=== PATIENT | female | born 1955 | race Asian ===

== ENCOUNTER → 2021-02-11 | Outpatient (CLI) | payer MEDICARE, OTHER ==
--- NOTE | 2021-02-11 17:35 | RAD ---
EXAM: MG DIAGNOSTICUNILAT MAMMO, US BREAST BIOPSY 1ST LESION 02/11/2021 1:30 PM INDICATION: Left breast mass COMPARISON: Left breast mammogram and ultrasound 02/05/2020 TECHNIQUE/FINDINGS: The purpose of the procedure, risks and benefits were explained to the patient. Informed consent was obtained. A timeout was performed. The patient was placed supine on the ultrasound table. The hypoechoic mass at 11:00, 5 cm from the ni pple in the left breast was identified and overlying skin marked, prepped, draped in standard sterile fashion. Skin was anesthetized with 1 percent lidocaine. Next, 3 core biopsy samples were obtained w ith a coaxial 14-gauge biopsy device. Samples were placed in formalin and sent to the laboratory for analysis. A Bard coil biopsy marker was then placed at the biopsy site under ultrasound. [place] were removed, pressure held for hemostasis, and skin cleansed and covered with a dressing. The patient to lerated the procedure well and left in stable condition. Post clip mammogram demonstrates appropriate position of clip in the mass at 11:00, 5 cm posterior to the nipple. IMPRESSION:Technically successful ultrasound-guided biopsy of left breast mass and clip placement. Electronically signed by: Natasha Malhotra MD (02/11/2021 5:33 PM) [id number]
--- NOTE | 2021-02-12 17:07 | PATHOLOGY ---
[facility] Accession Number: [id number] . 01 Material submitted: . breast - LEFT BREAST MASS 11 O'CLOCK 5CMFN 8MM. Modifiers: left, 11:00, 5CMFN 8MM . 02 Diagnosis: Breast tissue, left breast mass 11:00 5 cm from nipple needle biopsies: - INVASIVE DUCTAL CARCINOMA, HISTOLOGIC GRADE 3. SEE COMMENT. LBQ 02/12/2021 1339 Local . 02 Comment: Sections of the left breast mass 11:00 needle biopsy reveal an invasive mammary carcinoma. The tumor is associated with a reactive and inflamed desmoplastic stroma. The tumor shows no evidence of tubule formation. Tumor cells show marked nuclear pleomorphism and have enlarged rounded to ovoid hyperchromatic nuclei containing prominent nucleoli. There are mitotic figures present. The invasive carcinoma measures up to 5 mm in greatest dimension on the glass slide. There are no tumor associated calcifications. There is no lymphovascular tumor invasion. One of the sections appears to show solid type high-grade ductal carcinoma in situ within surrounding breast tissue. Breast prognostic studies will be obtained on A1, the results of which will be reported separately. The case is also examined by Dr. Jeffery, who concurs with the diagnosis. (JPM/db; 02/12/2021) . 02 Electronically signed: . Abraham Rodriguez MD, Pathologist NPI- [id number] . 01 Gross description: . The specimen is received in formalin, labeled "Sulaiman Cohn, left breast 11:00 5 cm from nipple". Received are three needle cores of fibrofatty tissue measuring 1.4 x 0.6 x 0.2 cm in aggregate dimensions. The specimen is submitted entirely in cassettes A1 through A3. The cold ischemic time is 2 minutes. The total formalin fixation time is 8 hours and 26 minutes. (CAA; 02/11/2021) QAC/QAC 02/11/2021 1557 Local . 02 Pathologist provided ICD-10: C50.912 . 02 CPT . 466254 Specimen Comment: A courtesy copy of this report has been sent to [phone], [phone] Specimen Comment: [phone] Specimen Comment: Report sent to / DR NOBLE Performed at: 01 [facility] [address] [place] [address] [id number] MD Axel Jeffery MD Phone: [phone] Performed at: 02 [facility] [address] [place] [address] [id number] MD Abraham Rodriguez MD Phone: [phone]
== END | disposition home or self-care (01) ==
LOC: US 12:27
PROVIDERS: ATTEND Specialist
DX: N63.22 Unspecified lump in the left breast, upper inner quadrant (principal); Z88.8 Allergy status to other drugs, medicaments and biological substances
CPT/HCPCS: 19083; 77065; A4648; 88305; 88361

== ENCOUNTER 2021-04-07 07:03 | Day surgery (SDC) | payer MEDICARE, OTHER ==
[~2021-04-07] VITALS: Ht 154.9 cm; Wt 47.7 kg
[~2021-04-07 07:03] MED LIST: ALEN70TA71 PO; ASCO100019 PO; CALC500T30 PO; CHOL20009 PO; HYDROmorphone 2 MG/ML VIAL IVP PRN; LEVO75TA5 PO; LIDOCAINE 1% Multi-Dose 20 ML VIAL. INJ ONE; MORPHINE SULFATE 2 MG/ML INJ. IVP PRN; PROCHLORPERAZINE 10 MG/2 ML VIAL. IVP PRN; ceFAZolin SODIUM IV Push 1 GM VIAL. IVP PRN; fentaNYL PF VIAL 100 MCG/2 ML VIAL IVP PRN
[2021-04-07] MEDS: IV RINGERS,LACTATED 1000ML 1,000 ML IV SCH ×2 (07:22→12:37)
[2021-04-07] MEDS ORDERED: LIDOCAINE 1% Multi-Dose 20 ML VIAL. ONE (09:17)
[2021-04-07] MEDS ORDERED: BUPIVACAINE-EPI 0.5% 30 ML VIAL KIT. ONE ×2 (09:58→10:07)
[2021-04-07] MEDS ORDERED: LIDOCAINE 1%/EPI 1:100,000 20 ML VIAL. ONE (09:58)
[2021-04-07] MEDS ORDERED: ISOSULFAN BLUE 1% 50 MG/5 ML VIAL. SQ ONE (09:58)
[2021-04-07] MEDS ORDERED: PROPOFOL 10 MG/ML (20ML) VIAL. IV ONE (10:01)
[2021-04-07] MEDS ORDERED: fentaNYL PF VIAL 100 MCG/2 ML VIAL ONE ×2 (10:02→12:28)
[2021-04-07] MEDS ORDERED: ONDANSETRON PF 4 MG/2 ML VIAL. ONE (10:03)
[2021-04-07] MEDS ORDERED: KETOROLAC 30 MG/ML VIAL. ONE (10:03)
[2021-04-07] MEDS ORDERED: LIDOCAINE 2% PF 5 ML VIAL. ONE (10:03)
[2021-04-07] MEDS ORDERED: DEXAMETHASONE SOD PHOS 20 MG/5 ML VIAL. ONE (10:03)
[2021-04-07] MEDS ORDERED: BUPIVACAINE MPF 0.5% 30 ML VIAL. ONE (10:04)
--- NOTE | 2021-04-07 10:23 | RAD ---
EXAM: MG DIAGNOSTICUNILAT MAMMO, US NDL LOC WIRE BREAST 04/07/2021 9:15 AM INDICATION: Left breast cancer, wire localization for surgery. COMPARISON: Left breast ultrasound and mammogram 02/11/2021 TECHNIQUE/FINDINGS: The purpose of the procedure, risks and benefits were explained to the patient. Informed consent was obtained. A timeout was performed. The patient was placed supine on the ultrasound table. The mass at 11:00 5 cm from the nipple in the leftbreast was identified and overlying skin marked, prepped, draped in standard sterile fashion. Ski n was anesthetized with 1 percent lidocaine. Next, a 5 cm wire localization needle was advanced into the mass and the wire deployed with the tip 1 cm beyond the edge of the mass. The wire was kept in pl shauna on the overlying needle was removed. The external portion of the wire was secured to the skin wit h a bandage. Post clip mammogram demonstrates appropriate position of clip in the mass at 11:00 5 cm from the nipp le, immediately adjacent to the clip. The tip of the wire is about 1-1.4 cm beyond the mass. IMPRESSION:Technically successful ultrasound-guided wire localization of left breast mass and post wi re-localization mammogram. Electronically signed by: Natasha Malhotra MD (04/07/2021 10:20 AM) [id number]
[2021-04-07] MEDS ORDERED: SEVOFLURANE 31 TO 60 MINUTES. IH ONE (10:35)
--- NOTE | 2021-04-07 12:06 | RAD ---
Exam performed: Porter lymph node injection . History: Left breast cancer. Date of Service: 04/07/2021. Discussion: Relative benefits risks and alternatives to the procedure were discussed and verbal and written infor med consent was obtained. With sterile technique, 1 mCi Lymphoseek radiotracer was injected intradermally in 4 aliquots around the periareolar left breast at 12:00, 3:00, 6:00, and 9:00. The patient tolerated the procedure well and was transferred to the preprocedure area in stable condition. Impression: Technically successful sentinel node injection of the left breast. Electronically signed by: Natasha Malhotra MD (04/07/2021 12:04 PM) [id number]
[2021-04-07] MEDS ORDERED: NALOXONE 0.4 MG/ML VIAL. IV PRN (12:30)
[2021-04-07] MEDS ORDERED: HYDROcodone/APAP 5/325MG 1 TAB TABLET PO PRN ×2 (12:30)
[2021-04-07] MEDS ORDERED: HYDROmorphone 2 MG/ML VIAL IV PRN (12:30)
[2021-04-07] MEDS ORDERED: ONDANSETRON PF 4 MG/2 ML VIAL. IVP PRN (12:30)
[2021-04-07] MEDS ORDERED: IV 1/2 NORMAL SALINE 1,000 ML IV SCH (12:30)
[2021-04-07] MEDS ORDERED: 0.9 % SODIUM CHLORIDE 10 ML DISP.SYRIN. IV PRN (12:30)
[2021-04-07] MEDS ORDERED: IV NORMAL SALINE 1000ML BAG 1,000 ML IV SCH (12:30)
--- NOTE | 2021-04-07 12:30 | PDOC4 ---
Operative Note Operative Note Operative Note: Preoperative Diagnosis: Left breast cancer Postoperative Diagnosis: Same Procedure: Left lumpectomy with needle localization, left sentinel lymph node biopsy Surgeon: Jeff Geophysics Professor: Jose Antonio Singh MS Anesthesia: General EBL: 10 mL Specimen: Left axillary sentinel lymph node biopsy, left lumpectomy short stitch superficial long stitch lateral, additional medial and inferior margins to pathology Drains: None Complications: None Indication: The patient is a 66-year-old female was recently diagnosed with early left breast cancer. She is interested in breast conservation. The plan is for lumpectomy with sentinel lymph node biopsy. The details and risks of surgery were discussed. The risks include bleeding, infection, scar tissue, wound healing problems, anesthetic risk, potential need for additional surgery procedure. She understands and would like to proceed. Description: The patient was taken initially to radiology where she underwent wire localization and injection of technetium sulfur colloid. She was then brought to the operating room and placed supine on the operating table. General anesthesia was performed. The left breast and axilla were prepped with ChloraPrep and draped in a standard surgical manner. Five mL of Lymphazurin were injected deep to the nipple areolar complex. Several minutes were allowed to elapse. An incision was made in the left axilla with a scalpel. Cautery di ssection was carried out into the axillary tissues. There was one area of focal increased nuclear uptake. This corresponded to a lymph node that did stain blue and showed a blue channel leading to it. This was harvested and sent to pathology as sentinel lymph node #1. Further inspection showed no remaining areas of nuclear uptake or blue staining nodes. There was no palpable a denopathy as well. Frozen section of the lymph node was negative for metastasis. We then proceeded with the lumpectomy. An incision was made at the expected location of the tumor at the 11 o'clock position of the left breast. Cautery dissection was carried down to the breast parenchyma. The wire was identified and followed to its distal tip. With cautery a generous lumpectomy specimen was mobilized from the surrounding tissues in the region of the tumor. The dissection was carried all the way down to the pectoralis muscle. In a medial to lateral fashion the lumpectomy specimen was excised off the chest wall and sent to radiology. Specimen radiograph confirmed the presence of the tumor and clip. Additional shave margins were taken in the medial and inferior margins which were sent to pathology. Hemostasis was good. The subcutaneous tissue of both incisions was closed with 3-0 Vicryl. Skin was approximated for Monocryl and sterile dressings were applied. The patient tolerated procedure well and was sent to the recovery room in stable condition. At the end the case all counts were correct AUDELIA MENDIOLA MD Apr 07, 2021 12:30
[2021-04-07] MEDS ORDERED: HYDROcodone/APAP 5/325MG 1 TAB TABLET PO ONE (13:00)
[2021-04-07 13:02] VITALS: BP 144/63
[2021-04-07] MEDS ORDERED: HYDR-2761 PO (13:06)
--- NOTE | 2021-04-07 13:08 | DISCH ---
DISCHARGE INSTRUCTIONS Condition on Discharge Condition on Discharge: Stable Activity After Discharge Activity Instructions for Disc: Activity as tolerated Diet after Discharge Diet after Discharge: Regular Wound Incision Care Wound/Incision Care: Other, see below (keep dressings clean and dry, DR will remove next week ) Follow-Up Follow up with: Dr Mendiola in office in 1 week, call for appointment, AUDELIA MENDIOLA MD Apr 07, 2021 13:08
--- NOTE | 2021-04-07 14:43 | RAD ---
EXAM: MG DIGITAL BILAT DIAGNOSTIC MAMMO WITH JOSE DAVID 04/07/2021 11:40 AM CLINICAL INDICATION: Lumpectomy specimen COMPARISON: Left breast mammogram 04/07/2021 TECHNIQUE: Mammographic images of the surgical specimen was obtained. FINDINGS: The entire mass, biopsy clip, and localization wire are seen in the specimen. IMPRESSION: Surgical specimen contains the entire mass, surgical clip, and wire. Electronically signed by: Natasha Malhotra MD (04/07/2021 2:41 PM) [id number]
== END 2021-04-07 13:49 | disposition home or self-care (01) ==
LOC: SURG 07:03
PROVIDERS: ATTEND Surgery
DX: C50.912 Malignant neoplasm of unspecified site of left female breast (principal); R92.8 Other abnormal and inconclusive findings on diagnostic imaging of breast; E03.9 Hypothyroidism, unspecified; Z79.899 Other long term (current) drug therapy; Z90.710 Acquired absence of both cervix and uterus; Z98.890 Other specified postprocedural states; Z88.8 Allergy status to other drugs, medicaments and biological substances
CPT/HCPCS: 19285; 19302; 38792; 76098; 77065; 88307; 88331; 88342; 96374; A4209; A4930; A6254; A6258; A9520; C1819; J0690; J1100; J1885; J2405; J2704; J3010; J3490; Q9968

== ENCOUNTER 2021-05-05 07:37 | Outpatient (CLI) | payer MEDICARE, OTHER ==
[~2021-05-05] VITALS: Ht 154.9 cm; Wt 47.7 kg
[2021-05-05] VITALS (7 sets, daily range): BP systolic 112–154; BP diastolic 50–68
[~2021-05-05 07:37] MED LIST changes: +HYDR-2761 PO; -HYDROmorphone 2 MG/ML VIAL IVP PRN; -LIDOCAINE 1% Multi-Dose 20 ML VIAL. INJ ONE; -MORPHINE SULFATE 2 MG/ML INJ. IVP PRN; -PROCHLORPERAZINE 10 MG/2 ML VIAL. IVP PRN; -ceFAZolin SODIUM IV Push 1 GM VIAL. IVP PRN; -fentaNYL PF VIAL 100 MCG/2 ML VIAL IVP PRN
[2021-05-05] MEDS ORDERED: ceFAZolin SODIUM IV Push 1 GM VIAL. IVP ONE ×2 (08:00→09:54)
[2021-05-05 08:20] LABS: BASO % 1 % (0-3); EOS # 0.1 x10^3/uL (0.0-0.7); EOS % 2 % (0-3); HEMATOCRIT 42.5 % (36.0-47.0); LYMPH # 1.9 x10^3/uL (1.0-4.8); LYMPH % 30 % (24-48); MEAN CORPUSCULAR HEMOGLOBIN 32 pg (25-35); MEAN CORPUSCULAR HGB CONC 33 g/dL (31-37); MEAN CORPUSCULAR VOLUME 98 fL (79-100); MONO # 0.3 x10^3/uL (0.0-1.1); MONO % 4 % (0-9); NEUT % 64 % (31-73); PLATELET COUNT 246 x10^3/uL (140-400); RED BLOOD COUNT 4.36 x10^6/uL (3.50-5.40); RED CELL DISTRIBUTION WIDTH 13.1 % (11.5-14.5); WHITE BLOOD COUNT 6.3 x10^3/uL (4.0-11.0)
[2021-05-05 08:26] LABS: CALCIUM 8.7 mg/dL (8.5-10.1); CREATININE 0.6 mg/dL (0.6-1.0); POTASSIUM 4.1 mmol/L (3.5-5.1)
[2021-05-05] MEDS ORDERED: LIDOCAINE 1%/EPI 1:100,000 20 ML VIAL. ONE (08:32)
[2021-05-05] MEDS ORDERED: fentaNYL PF VIAL 100 MCG/2 ML VIAL ONE (09:54)
[2021-05-05] MEDS ORDERED: MIDAZOLAM HCL/PF 2 MG/2 ML VIAL. ONE (09:54)
[2021-05-05] MEDS ORDERED: HEPARIN PF 500 UNIT/5 ML DISP.SYRIN. IVP ONE ×2 (10:21→10:30)
[2021-05-05] MEDS ORDERED: LIDOCAINE 1%/EPI 1:100,000 20 ML VIAL. INJ ONE (10:30)
[2021-05-05] MEDS ORDERED: fentaNYL PF VIAL 100 MCG/2 ML VIAL IV ONE (10:30)
[2021-05-05] MEDS ORDERED: MIDAZOLAM HCL/PF 2 MG/2 ML VIAL. IV ONE (10:30)
--- NOTE | 2021-05-05 12:17 | RAD ---
PROCEDURE: Fluoroscopically and ultrasound-guided placement of right internal jugular tunnel central venous catheter with port ( Clinical Indication: Left breast cancer Discussion: The risks and benefits of the procedure were discussed with the patient and/or their insurance account representative. Informed consent was obtained. The patient was brought to the fluoroscopy suite and placed in supine position. A time out procedure was performed. The right neck and chest were prepped and draped using maximum sterile barrier technique including th e use of: Current guideline approved cutaneous antisepsis, a large sterile sheet to establish a steri le field. Additionally the duplicator punch set up operator wore a hat, mask, sterile gloves, a sterile gown during the proce dure as well as practiced acceptable hand hygiene prior to placing the port. Ultrasound-guided access: Ultrasound evaluation showed the right jugular vein to be patent and compr essible. 1 % lidocaine with epinephrine was administered to the skin and subcutaneous tissues overlyi ng the right neck and chest. Under direct ultrasound guidance a single wall puncture was made followe d by tract dilation and placement of a sheath. An ultrasound image was saved and sent to PACS. Next, an incision was made in an infraclavicular location and a pocket created. The catheter was tunneled between the pocket and the venotomy site. The catheter was advanced through the peel away sheath, u nder fluoroscopic guidance, such that it's tip was in the mid right atrium. The catheter was connecte d to the port reservoir. The port was accessed and found to flush and aspirate normally. The reservoi r was then placed into the subcutaneous pocket. The wound was closed in layers using 4-0 Vicryl sutu re. Dermabond was applied overlying the wound, and venotomy site. The patient tolerated procedure wit hout immediate complication. Sedation: Conscious sedation was performed for 30 minutes. Sedation was carried while the patient was continually monitored by a member of the Radiology nursing staff. Continual cardiopulmonary renny toring was carried out during the procedure. The patient tolerated the procedure well and there were no immediate complications. Fluoroscopy time: 0.3 mins Dose area product 0.3 Shen centimeter squared Impression: Successful ultrasound and fluoroscopically guided placement of right internal jugular eusebia harlan central venous catheter with port Electronically signed by: Jose Dodge MD (05/05/2021 12:14 PM) [id number]
--- NOTE | 2021-05-05 12:17 | RAD ---
PROCEDURE: Fluoroscopically and ultrasound-guided placement of right internal jugular tunnel central venous catheter with port ( Clinical Indication: Left breast cancer Discussion: The risks and benefits of the procedure were discussed with the patient and/or their off premise service representative. Informed consent was obtained. The patient was brought to the fluoroscopy suite and placed in supine position. A time out procedure was performed. The right neck and chest were prepped and draped using maximum sterile barrier technique including th e use of: Current guideline approved cutaneous antisepsis, a large sterile sheet to establish a steri le field. Additionally the continuous vulcanizing machine operator wore a hat, mask, sterile gloves, a sterile gown during the proce dure as well as practiced acceptable hand hygiene prior to placing the port. Ultrasound-guided access: Ultrasound evaluation showed the right jugular vein to be patent and compr essible. 1 % lidocaine with epinephrine was administered to the skin and subcutaneous tissues overlyi ng the right neck and chest. Under direct ultrasound guidance a single wall puncture was made followe d by tract dilation and placement of a sheath. An ultrasound image was saved and sent to PACS. Next, an incision was made in an infraclavicular location and a pocket created. The catheter was tunneled between the pocket and the venotomy site. The catheter was advanced through the peel away sheath, u nder fluoroscopic guidance, such that it's tip was in the mid right atrium. The catheter was connecte d to the port reservoir. The port was accessed and found to flush and aspirate normally. The reservoi r was then placed into the subcutaneous pocket. The wound was closed in layers using 4-0 Vicryl sutu re. Dermabond was applied overlying the wound, and venotomy site. The patient tolerated procedure wit hout immediate complication. Sedation: Conscious sedation was performed for 30 minutes. Sedation was carried while the patient was continually monitored by a member of the Radiology nursing staff. Continual cardiopulmonary renny toring was carried out during the procedure. The patient tolerated the procedure well and there were no immediate complications. Fluoroscopy time: 0.3 mins Dose area product 0.3 Shen centimeter squared Impression: Successful ultrasound and fluoroscopically guided placement of right internal jugular eusebia harlan central venous catheter with port Electronically signed by: Jose Dodge MD (05/05/2021 12:14 PM) [id number]
--- NOTE | 2021-05-05 12:17 | RAD ---
PROCEDURE: Fluoroscopically and ultrasound-guided placement of right internal jugular tunnel central venous catheter with port ( Clinical Indication: Left breast cancer Discussion: The risks and benefits of the procedure were discussed with the patient and/or their tax representative. Informed consent was obtained. The patient was brought to the fluoroscopy suite and placed in supine position. A time out procedure was performed. The right neck and chest were prepped and draped using maximum sterile barrier technique including th e use of: Current guideline approved cutaneous antisepsis, a large sterile sheet to establish a steri le field. Additionally the welding machine operator/tender wore a hat, mask, sterile gloves, a sterile gown during the proce dure as well as practiced acceptable hand hygiene prior to placing the port. Ultrasound-guided access: Ultrasound evaluation showed the right jugular vein to be patent and compr essible. 1 % lidocaine with epinephrine was administered to the skin and subcutaneous tissues overlyi ng the right neck and chest. Under direct ultrasound guidance a single wall puncture was made followe d by tract dilation and placement of a sheath. An ultrasound image was saved and sent to PACS. Next, an incision was made in an infraclavicular location and a pocket created. The catheter was tunneled between the pocket and the venotomy site. The catheter was advanced through the peel away sheath, u nder fluoroscopic guidance, such that it's tip was in the mid right atrium. The catheter was connecte d to the port reservoir. The port was accessed and found to flush and aspirate normally. The reservoi r was then placed into the subcutaneous pocket. The wound was closed in layers using 4-0 Vicryl sutu re. Dermabond was applied overlying the wound, and venotomy site. The patient tolerated procedure wit hout immediate complication. Sedation: Conscious sedation was performed for 30 minutes. Sedation was carried while the patient was continually monitored by a member of the Radiology nursing staff. Continual cardiopulmonary renny toring was carried out during the procedure. The patient tolerated the procedure well and there were no immediate complications. Fluoroscopy time: 0.3 mins Dose area product 0.3 Shen centimeter squared Impression: Successful ultrasound and fluoroscopically guided placement of right internal jugular eusebia harlan central venous catheter with port Electronically signed by: Jose Dodge MD (05/05/2021 12:14 PM) [id number]
--- NOTE | 2021-05-05 12:19 | NUR ---
Discharge Note: RUTHY BUSBY Discharge instructions and discharge home medications reviewed with Patient and a copy given. All questions have been answered and understanding verbalized. The following instructions and handouts were given: Moderate sedation and port placement. Discontinued lines and drains: Right FA IV dc'd and tip intact. Patient discharged to home with via personal vehicle.
== END 2021-05-05 12:22 | disposition home or self-care (01) ==
LOC: INTRAD 07:37
PROVIDERS: ATTEND Internal Medicine Hematology & Oncology
DX: Z45.2 Encounter for adjustment and management of vascular access device (principal); C50.412 Malignant neoplasm of upper-outer quadrant of left female breast; E03.9 Hypothyroidism, unspecified; Z79.899 Other long term (current) drug therapy; Z90.710 Acquired absence of both cervix and uterus; Z98.890 Other specified postprocedural states; Z88.8 Allergy status to other drugs, medicaments and biological substances
CPT/HCPCS: 36415; 36561; 76937; 77001; 80048; 85025; 85610; 99152; 99153; C1788; C1892; J0690; J1642; J2250; J3010; J3490

== ENCOUNTER → 2021-05-14 | Outpatient (CLI) | payer MEDICARE, OTHER ==
[2021-05-05 11:45] VITALS: BP 126/68
[2021-05-14 09:10] LABS: BASO % 1 % (0-3); EOS # 0.1 x10^3/uL (0.0-0.7); EOS % 2 % (0-3); LYMPH # 1.9 x10^3/uL (1.0-4.8); LYMPH % 33 % (24-48); MEAN CORPUSCULAR HEMOGLOBIN 33 pg (25-35); MEAN CORPUSCULAR HGB CONC 34 g/dL (31-37); MEAN CORPUSCULAR VOLUME 96 fL (79-100); MONO # 0.2 x10^3/uL (0.0-1.1); MONO % 4 % (0-9); NEUT # 3.6 x10^3/uL (1.8-7.7); NEUT % 61 % (31-73); PLATELET COUNT 239 x10^3/uL (140-400); RED BLOOD COUNT 3.97 x10^6/uL (3.50-5.40); WHITE BLOOD COUNT 5.8 x10^3/uL (4.0-11.0)
[2021-05-14 09:24] LABS: CALCIUM 8.8 mg/dL (8.5-10.1); CREATININE 0.7 mg/dL (0.6-1.0); GFR 83.7; POTASSIUM 3.9 mmol/L (3.5-5.1)
[2021-05-14 09:32] LABS: ALBUMIN 3.4 g/dL (3.4-5.0); TOTAL BILIRUBIN 0.6 mg/dL (0.2-1.0); TOTAL PROTEIN 6.8 g/dL (6.4-8.2)
== END ==
LOC: ONCLAB 08:43
PROVIDERS: ATTEND Internal Medicine Hematology & Oncology
DX: C50.412 Malignant neoplasm of upper-outer quadrant of left female breast (principal)
CPT/HCPCS: 36415; 80053; 85025

== ENCOUNTER → 2021-05-20 | Outpatient (CLI) | payer MEDICARE, OTHER ==
[2021-05-05 11:45] VITALS: BP 126/68
[2021-05-20 11:36] LABS: BASO # 0.1 x10^3/uL (0.0-0.2); BASO % 1 % (0-3); EOS # 0.1 x10^3/uL (0.0-0.7); EOS % 1 % (0-3); HEMATOCRIT 35.6 % (36.0-47.0); HEMOGLOBIN 12.1 g/dL (12.0-15.5); LYMPH % 25 % (24-48); MEAN CORPUSCULAR HEMOGLOBIN 33 pg (25-35); MEAN CORPUSCULAR HGB CONC 34 g/dL (31-37); MEAN CORPUSCULAR VOLUME 96 fL (79-100); MONO % 1 % (0-9); NEUT # 5.9 x10^3/uL (1.8-7.7); NEUT % 73 % (31-73); PLATELET COUNT 142 x10^3/uL (140-400); RED CELL DISTRIBUTION WIDTH 12.5 % (11.5-14.5); WHITE BLOOD COUNT 8.1 x10^3/uL (4.0-11.0)
[2021-05-20 11:43] LABS: CALCIUM 8.8 mg/dL (8.5-10.1); GFR 55.5; POTASSIUM 3.5 mmol/L (3.5-5.1)
[2021-05-20 11:50] LABS: ALBUMIN 3.2 g/dL (3.4-5.0); ALBUMIN/GLOBULIN RATIO 0.9 (1.0-1.7); TOTAL BILIRUBIN 0.6 mg/dL (0.2-1.0); TOTAL PROTEIN 6.9 g/dL (6.4-8.2)
[2021-05-20 13:24] LABS: % ATYL 8 % (0-0); % BANDS 5 % (0-9); % LYMPHS 45 % (24-48); % METAS 2 % (0-0); % MONOS 7 % (0-10); % MYELOS 1 % (0-0); % SEGS 32 % (35-66); NUCLEATED RBC 4; TOXIC GRANULATION MARKED; TOXIC VACUOLATION MOD
[2021-05-20 13:31] LABS: PLT ESTIMATE ADEQUATE (ADEQUATE)
== END ==
LOC: ONCLAB 10:53
PROVIDERS: ATTEND Internal Medicine Hematology & Oncology
DX: C50.412 Malignant neoplasm of upper-outer quadrant of left female breast (principal)
CPT/HCPCS: 36415; 80053; 85007; 85025

== ENCOUNTER → 2021-05-27 | Outpatient (CLI) | payer MEDICARE, OTHER ==
[2021-05-05 11:45] VITALS: BP 126/68
[2021-05-27 11:07] LABS: BASO % 0 % (0-3); EOS % 0 % (0-3); HEMATOCRIT 35.4 % (36.0-47.0); HEMOGLOBIN 11.5 g/dL (12.0-15.5); LYMPH # 1.9 x10^3/uL (1.0-4.8); LYMPH % 12 % (24-48); MEAN CORPUSCULAR HEMOGLOBIN 32 pg (25-35); MEAN CORPUSCULAR HGB CONC 33 g/dL (31-37); MEAN CORPUSCULAR VOLUME 98 fL (79-100); MONO # 0.5 x10^3/uL (0.0-1.1); MONO % 3 % (0-9); NEUT # 13.1 x10^3/uL (1.8-7.7); NEUT % 84 % (31-73); PLATELET COUNT 140 x10^3/uL (140-400); RED BLOOD COUNT 3.63 x10^6/uL (3.50-5.40); RED CELL DISTRIBUTION WIDTH 13.4 % (11.5-14.5); WHITE BLOOD COUNT 15.5 x10^3/uL (4.0-11.0)
[2021-05-27 13:01] LABS: % ATYL 1 % (0-0); % BANDS 16 % (0-9); % LYMPHS 10 % (24-48); % MONOS 1 % (0-10); % MYELOS 1 % (0-0); % SEGS 71 % (35-66); PLT ESTIMATE ADEQUATE (ADEQUATE)
== END ==
LOC: ONCLAB 10:25
PROVIDERS: ATTEND Physician Assistant
DX: C50.412 Malignant neoplasm of upper-outer quadrant of left female breast (principal)
CPT/HCPCS: 36415; 85007; 85025

== ENCOUNTER → 2021-06-04 | Outpatient (CLI) | payer MEDICARE, OTHER ==
[2021-05-05 11:45] VITALS: BP 126/68
[2021-06-04 08:31] LABS: BASO # 0.1 x10^3/uL (0.0-0.2); BASO % 1 % (0-3); EOS % 0 % (0-3); HEMATOCRIT 35.6 % (36.0-47.0); HEMOGLOBIN 12.1 g/dL (12.0-15.5); LYMPH # 1.6 x10^3/uL (1.0-4.8); LYMPH % 26 % (24-48); MEAN CORPUSCULAR HEMOGLOBIN 33 pg (25-35); MEAN CORPUSCULAR HGB CONC 34 g/dL (31-37); MEAN CORPUSCULAR VOLUME 97 fL (79-100); MONO # 0.2 x10^3/uL (0.0-1.1); MONO % 4 % (0-9); NEUT # 4.2 x10^3/uL (1.8-7.7); NEUT % 69 % (31-73); PLATELET COUNT 403 x10^3/uL (140-400); RED BLOOD COUNT 3.68 x10^6/uL (3.50-5.40); RED CELL DISTRIBUTION WIDTH 13.7 % (11.5-14.5); WHITE BLOOD COUNT 6.2 x10^3/uL (4.0-11.0)
== END ==
LOC: ONCLAB 08:20
PROVIDERS: ATTEND Internal Medicine Hematology & Oncology
DX: C50.412 Malignant neoplasm of upper-outer quadrant of left female breast (principal)
CPT/HCPCS: 36415; 85025

== ENCOUNTER → 2021-06-11 | Outpatient (CLI) | payer MEDICARE, OTHER ==
[2021-05-05 11:45] VITALS: BP 126/68
[2021-06-11 08:39] LABS: CALCIUM 9.2 mg/dL (8.5-10.1); CREATININE 0.7 mg/dL (0.6-1.0); GFR 83.7; POTASSIUM 4.2 mmol/L (3.5-5.1)
[2021-06-11 08:42] LABS: BASO # 0.1 x10^3/uL (0.0-0.2); BASO % 1 % (0-3); EOS # 0.1 x10^3/uL (0.0-0.7); EOS % 1 % (0-3); HEMATOCRIT 35.5 % (36.0-47.0); HEMOGLOBIN 11.9 g/dL (12.0-15.5); LYMPH # 2.1 x10^3/uL (1.0-4.8); LYMPH % 16 % (24-48); MEAN CORPUSCULAR HEMOGLOBIN 32 pg (25-35); MEAN CORPUSCULAR HGB CONC 33 g/dL (31-37); MEAN CORPUSCULAR VOLUME 96 fL (79-100); MONO # 1.1 x10^3/uL (0.0-1.1); MONO % 8 % (0-9); NEUT # 10.2 x10^3/uL (1.8-7.7); NEUT % 75 % (31-73); PLATELET COUNT 232 x10^3/uL (140-400); RED BLOOD COUNT 3.71 x10^6/uL (3.50-5.40); RED CELL DISTRIBUTION WIDTH 13.6 % (11.5-14.5); WHITE BLOOD COUNT 13.6 x10^3/uL (4.0-11.0)
[2021-06-11 08:46] LABS: ALBUMIN 3.5 g/dL (3.4-5.0); ALBUMIN/GLOBULIN RATIO 0.9 (1.0-1.7); TOTAL BILIRUBIN 0.4 mg/dL (0.2-1.0); TOTAL PROTEIN 7.3 g/dL (6.4-8.2)
[2021-06-11 09:24] LABS: % ATYL 1 % (0-0); % BANDS 23 % (0-9); % BASOS 2 % (0-3); % LYMPHS 18 % (24-48); % METAS 8 % (0-0); % MONOS 6 % (0-10); % MYELOS 1 % (0-0); % SEGS 41 % (35-66); ANISOCYTOSIS SLIGHT; PLT ESTIMATE ADEQUATE (ADEQUATE)
[2021-06-11 09:25] LABS: POLYCHROMASIA OCCASIONAL
== END ==
LOC: ONCLAB 08:09
PROVIDERS: ATTEND Internal Medicine Hematology & Oncology
DX: C50.412 Malignant neoplasm of upper-outer quadrant of left female breast (principal)
CPT/HCPCS: 36415; 80053; 85007; 85025

== ENCOUNTER → 2021-06-25 | Outpatient (CLI) | payer MEDICARE, OTHER ==
[2021-05-05 11:45] VITALS: BP 126/68
[2021-06-25 08:50] LABS: BASO # 0.1 x10^3/uL (0.0-0.2); BASO % 1 % (0-3); EOS % 0 % (0-3); HEMATOCRIT 35.3 % (36.0-47.0); HEMOGLOBIN 11.8 g/dL (12.0-15.5); LYMPH # 1.4 x10^3/uL (1.0-4.8); LYMPH % 22 % (24-48); MEAN CORPUSCULAR HEMOGLOBIN 32 pg (25-35); MEAN CORPUSCULAR HGB CONC 34 g/dL (31-37); MEAN CORPUSCULAR VOLUME 96 fL (79-100); MONO # 0.3 x10^3/uL (0.0-1.1); MONO % 5 % (0-9); NEUT # 4.3 x10^3/uL (1.8-7.7); NEUT % 72 % (31-73); PLATELET COUNT 289 x10^3/uL (140-400); RED BLOOD COUNT 3.68 x10^6/uL (3.50-5.40); RED CELL DISTRIBUTION WIDTH 14.7 % (11.5-14.5); WHITE BLOOD COUNT 6.1 x10^3/uL (4.0-11.0)
[2021-06-25 09:08] LABS: CALCIUM 8.7 mg/dL (8.5-10.1); CREATININE 0.6 mg/dL (0.6-1.0); POTASSIUM 4.3 mmol/L (3.5-5.1)
[2021-06-25 09:14] LABS: ALBUMIN 3.6 g/dL (3.4-5.0); ALBUMIN/GLOBULIN RATIO 1.1 (1.0-1.7); TOTAL BILIRUBIN 0.8 mg/dL (0.2-1.0); TOTAL PROTEIN 6.9 g/dL (6.4-8.2)
== END ==
LOC: ONCLAB 08:14
PROVIDERS: ATTEND Internal Medicine Hematology & Oncology
DX: C50.412 Malignant neoplasm of upper-outer quadrant of left female breast (principal)
CPT/HCPCS: 36415; 80053; 83615; 85025

== ENCOUNTER → 2021-07-16 | Outpatient (CLI) | payer MEDICARE, OTHER ==
[2021-05-05 11:45] VITALS: BP 126/68
[2021-07-16 10:32] LABS: BASO # 0.1 x10^3/uL (0.0-0.2); BASO % 1 % (0-3); EOS % 0 % (0-3); HEMATOCRIT 35.5 % (36.0-47.0); HEMOGLOBIN 11.4 g/dL (12.0-15.5); LYMPH # 1.4 x10^3/uL (1.0-4.8); LYMPH % 20 % (24-48); MEAN CORPUSCULAR HEMOGLOBIN 32 pg (25-35); MEAN CORPUSCULAR HGB CONC 32 g/dL (31-37); MEAN CORPUSCULAR VOLUME 99 fL (79-100); MONO # 0.4 x10^3/uL (0.0-1.1); MONO % 5 % (0-9); NEUT # 5.1 x10^3/uL (1.8-7.7); NEUT % 74 % (31-73); PLATELET COUNT 269 x10^3/uL (140-400); RED CELL DISTRIBUTION WIDTH 15.8 % (11.5-14.5)
[2021-07-16 10:46] LABS: CALCIUM 8.3 mg/dL (8.5-10.1); CREATININE 0.6 mg/dL (0.6-1.0); POTASSIUM 4.1 mmol/L (3.5-5.1)
[2021-07-16 10:53] LABS: ALBUMIN 3.5 g/dL (3.4-5.0); TOTAL BILIRUBIN 0.8 mg/dL (0.2-1.0); TOTAL PROTEIN 6.9 g/dL (6.4-8.2)
== END ==
LOC: ONCLAB 10:04
PROVIDERS: ATTEND Internal Medicine Hematology & Oncology
DX: C50.412 Malignant neoplasm of upper-outer quadrant of left female breast (principal)
CPT/HCPCS: 36415; 80053; 83615; 85025

== ENCOUNTER → 2021-07-21 | Outpatient (CLI) | payer MEDICARE, OTHER ==
[2021-05-05 11:45] VITALS: BP 126/68
== END ==
LOC: CT 08:16
PROVIDERS: ATTEND Radiology Radiation Oncology
DX: C50.412 Malignant neoplasm of upper-outer quadrant of left female breast (principal)
CPT/HCPCS: 76380

== ENCOUNTER → 2021-07-23 | Outpatient (CLI) | payer MEDICARE, OTHER ==
[2021-05-05 11:45] VITALS: BP 126/68
[2021-07-23 11:26] LABS: BASO % 0 % (0-3); EOS % 1 % (0-3); HEMATOCRIT 32.9 % (36.0-47.0); HEMOGLOBIN 10.8 g/dL (12.0-15.5); LYMPH # 0.8 x10^3/uL (1.0-4.8); LYMPH % 10 % (24-48); MEAN CORPUSCULAR HEMOGLOBIN 32 pg (25-35); MEAN CORPUSCULAR HGB CONC 33 g/dL (31-37); MEAN CORPUSCULAR VOLUME 99 fL (79-100); MONO # 0.9 x10^3/uL (0.0-1.1); MONO % 11 % (0-9); NEUT # 6.1 x10^3/uL (1.8-7.7); NEUT % 78 % (31-73); PLATELET COUNT 164 x10^3/uL (140-400); RED BLOOD COUNT 3.34 x10^6/uL (3.50-5.40); RED CELL DISTRIBUTION WIDTH 15.3 % (11.5-14.5); WHITE BLOOD COUNT 7.8 x10^3/uL (4.0-11.0)
[2021-07-23 11:32] LABS: CALCIUM 8.4 mg/dL (8.5-10.1); CREATININE 0.7 mg/dL (0.6-1.0); GFR 83.7; POTASSIUM 3.7 mmol/L (3.5-5.1)
[2021-07-23 11:37] LABS: ALBUMIN 3.2 g/dL (3.4-5.0); ALBUMIN/GLOBULIN RATIO 0.9 (1.0-1.7); TOTAL BILIRUBIN 0.4 mg/dL (0.2-1.0); TOTAL PROTEIN 6.9 g/dL (6.4-8.2)
[2021-07-23 12:35] LABS: % BANDS 32 % (0-9); % EOS 1 % (0-5); % LYMPHS 12 % (24-48); % METAS 3 % (0-0); % MONOS 11 % (0-10); % MYELOS 6 % (0-0); % PROS 1 % (0-0); % SEGS 34 % (35-66)
[2021-07-23 12:40] LABS: PLT ESTIMATE ADEQUATE (ADEQUATE)
[2021-07-23 12:42] LABS: ANISOCYTOSIS SLIGHT; TOXIC GRANULATION MARKED
== END ==
LOC: ONCLAB 10:57
PROVIDERS: ATTEND Internal Medicine Hematology & Oncology
DX: C50.412 Malignant neoplasm of upper-outer quadrant of left female breast (principal)
CPT/HCPCS: 36415; 80053; 85007; 85025

== ENCOUNTER → 2021-08-01 | Outpatient (CLI) | payer MEDICARE, OTHER ==
[2021-05-05 11:45] VITALS: BP 126/68
[2021-08-01 13:50] LABS: BASO % 0 % (0-3); EOS % 0 % (0-3); HEMATOCRIT 31.6 % (36.0-47.0); HEMOGLOBIN 10.3 g/dL (12.0-15.5); LYMPH # 1.1 x10^3/uL (1.0-4.8); LYMPH % 13 % (24-48); MEAN CORPUSCULAR HEMOGLOBIN 32 pg (25-35); MEAN CORPUSCULAR HGB CONC 33 g/dL (31-37); MEAN CORPUSCULAR VOLUME 98 fL (79-100); MONO # 0.4 x10^3/uL (0.0-1.1); MONO % 4 % (0-9); NEUT # 7.4 x10^3/uL (1.8-7.7); NEUT % 83 % (31-73); PLATELET COUNT 416 x10^3/uL (140-400); RED BLOOD COUNT 3.22 x10^6/uL (3.50-5.40); RED CELL DISTRIBUTION WIDTH 15.3 % (11.5-14.5); WHITE BLOOD COUNT 8.9 x10^3/uL (4.0-11.0)
[2021-08-01 14:00] LABS: CALCIUM 7.9 mg/dL (8.5-10.1); CREATININE 0.6 mg/dL (0.6-1.0); POTASSIUM 4.1 mmol/L (3.5-5.1)
[2021-08-01 14:07] LABS: ALBUMIN/GLOBULIN RATIO 0.9 (1.0-1.7); TOTAL BILIRUBIN 0.4 mg/dL (0.2-1.0); TOTAL PROTEIN 6.3 g/dL (6.4-8.2)
== END ==
LOC: ONCLAB 12:47
PROVIDERS: ATTEND Physician Assistant
DX: C50.412 Malignant neoplasm of upper-outer quadrant of left female breast (principal)
CPT/HCPCS: 36415; 80053; 83615; 85025

== ENCOUNTER → 2021-08-06 | Outpatient (CLI) | payer MEDICARE, OTHER ==
[2021-05-05 11:45] VITALS: BP 126/68
[2021-08-06 10:40] LABS: BASO % 1 % (0-3); EOS % 1 % (0-3); HEMATOCRIT 33.3 % (36.0-47.0); HEMOGLOBIN 10.7 g/dL (12.0-15.5); LYMPH # 0.8 x10^3/uL (1.0-4.8); LYMPH % 9 % (24-48); MEAN CORPUSCULAR HEMOGLOBIN 32 pg (25-35); MEAN CORPUSCULAR HGB CONC 32 g/dL (31-37); MEAN CORPUSCULAR VOLUME 99 fL (79-100); MONO # 0.4 x10^3/uL (0.0-1.1); MONO % 5 % (0-9); NEUT # 7.2 x10^3/uL (1.8-7.7); NEUT % 85 % (31-73); PLATELET COUNT 455 x10^3/uL (140-400); RED BLOOD COUNT 3.36 x10^6/uL (3.50-5.40); RED CELL DISTRIBUTION WIDTH 16.5 % (11.5-14.5); WHITE BLOOD COUNT 8.5 x10^3/uL (4.0-11.0)
[2021-08-06 10:59] LABS: CALCIUM 8.5 mg/dL (8.5-10.1); CREATININE 0.6 mg/dL (0.6-1.0); POTASSIUM 3.7 mmol/L (3.5-5.1)
[2021-08-06 11:06] LABS: ALBUMIN 3.2 g/dL (3.4-5.0); ALBUMIN/GLOBULIN RATIO 0.9 (1.0-1.7); TOTAL BILIRUBIN 0.4 mg/dL (0.2-1.0); TOTAL PROTEIN 6.9 g/dL (6.4-8.2)
== END ==
LOC: ONCLAB 10:18
PROVIDERS: ATTEND Internal Medicine Hematology & Oncology
DX: C50.412 Malignant neoplasm of upper-outer quadrant of left female breast (principal)
CPT/HCPCS: 36415; 80053; 83615; 85025

== ENCOUNTER → 2021-08-20 | Outpatient (CLI) | payer MEDICARE, OTHER ==
[2021-05-05 11:45] VITALS: BP 126/68
[2021-08-20 11:03] LABS: BASO % 1 % (0-3); EOS # 0.1 x10^3/uL (0.0-0.7); EOS % 3 % (0-3); HEMATOCRIT 35.2 % (36.0-47.0); HEMOGLOBIN 11.4 g/dL (12.0-15.5); LYMPH # 1.1 x10^3/uL (1.0-4.8); LYMPH % 26 % (24-48); MEAN CORPUSCULAR HEMOGLOBIN 33 pg (25-35); MEAN CORPUSCULAR HGB CONC 32 g/dL (31-37); MEAN CORPUSCULAR VOLUME 101 fL (79-100); MONO # 0.2 x10^3/uL (0.0-1.1); MONO % 6 % (0-9); NEUT # 2.8 x10^3/uL (1.8-7.7); NEUT % 65 % (31-73); PLATELET COUNT 295 x10^3/uL (140-400); RED BLOOD COUNT 3.48 x10^6/uL (3.50-5.40); RED CELL DISTRIBUTION WIDTH 17.1 % (11.5-14.5); WHITE BLOOD COUNT 4.3 x10^3/uL (4.0-11.0)
[2021-08-20 11:05] LABS: CALCIUM 8.7 mg/dL (8.5-10.1); CREATININE 0.6 mg/dL (0.6-1.0); POTASSIUM 4.2 mmol/L (3.5-5.1)
[2021-08-20 11:11] LABS: ALBUMIN 3.4 g/dL (3.4-5.0); ALBUMIN/GLOBULIN RATIO 0.9 (1.0-1.7); TOTAL BILIRUBIN 0.6 mg/dL (0.2-1.0)
== END ==
LOC: ONCLAB 10:25
PROVIDERS: ATTEND Internal Medicine Hematology & Oncology
DX: C50.412 Malignant neoplasm of upper-outer quadrant of left female breast (principal)
CPT/HCPCS: 36415; 80053; 83615; 85025

== ENCOUNTER → 2021-09-17 | Outpatient (CLI) | payer MEDICARE, OTHER ==
[2021-05-05 11:45] VITALS: BP 126/68
[2021-09-17 10:58] LABS: BASO % 1 % (0-3); EOS # 0.1 x10^3/uL (0.0-0.7); EOS % 1 % (0-3); HEMATOCRIT 38.3 % (36.0-47.0); HEMOGLOBIN 12.6 g/dL (12.0-15.5); LYMPH # 1.9 x10^3/uL (1.0-4.8); LYMPH % 45 % (24-48); MEAN CORPUSCULAR HEMOGLOBIN 33 pg (25-35); MEAN CORPUSCULAR HGB CONC 33 g/dL (31-37); MEAN CORPUSCULAR VOLUME 100 fL (79-100); MONO # 0.2 x10^3/uL (0.0-1.1); MONO % 5 % (0-9); NEUT # 2.1 x10^3/uL (1.8-7.7); NEUT % 48 % (31-73); PLATELET COUNT 184 x10^3/uL (140-400); RED BLOOD COUNT 3.85 x10^6/uL (3.50-5.40); RED CELL DISTRIBUTION WIDTH 14.4 % (11.5-14.5); WHITE BLOOD COUNT 4.3 x10^3/uL (4.0-11.0)
[2021-09-17 11:14] LABS: CALCIUM 8.9 mg/dL (8.5-10.1); CREATININE 0.6 mg/dL (0.6-1.0); POTASSIUM 3.8 mmol/L (3.5-5.1)
[2021-09-17 11:21] LABS: ALBUMIN 3.8 g/dL (3.4-5.0); ALBUMIN/GLOBULIN RATIO 1.1 (1.0-1.7); TOTAL BILIRUBIN 0.7 mg/dL (0.2-1.0); TOTAL PROTEIN 7.2 g/dL (6.4-8.2)
== END ==
LOC: ONCLAB 10:20
PROVIDERS: ATTEND Internal Medicine Hematology & Oncology
DX: C50.412 Malignant neoplasm of upper-outer quadrant of left female breast (principal)
CPT/HCPCS: 36415; 80053; 83615; 85025